=== PATIENT | female | born 2000 | race Caucasian/White ===

== ENCOUNTER 2023-01-30 13:32 | Emergency (ER) | payer MEDICAID, SELFPAY ==
[2023-01-30 13:39] VITALS: BP 115/83; PULSE 92; RESP 16; TEMP 36.7; O2SAT 97; BMI 28.3
[2023-01-30 14:56] LABS: Basophils % 0.4 %; Eosinophils # 0.3 10^3/uL (0.0-0.8); Eosinophils % 3.3 %; Hematocrit 39.1 % (37.0-47.0); Hemoglobin 11.6 g/dL (11.5-15.3); Lymphocytes # 2.1 10^3/uL (0.8-4.8); Mean Corpuscular HGB Conc 29.7 g/dL (30.0-36.0); Mean Corpuscular Hemoglobin 24.6 pg (28.0-34.0); Mean Platelet Volume 10.8 fL (7.4-10.4); Monocytes # 0.6 10^3/uL (0.2-0.9); Monocytes % 6.4 %; Neutrophils % 67.7 %; Nucleated Red Blood Cells % 0 %; Platelet Count 182 10^3/cmm (130-400); Red Blood Count 4.71 10^6/uL (4.1-5.3); Red Cell Distribution Width 16.7 % (12.1-15.1); White Blood Count 9.7 10^3/uL (4.0-10.0)
--- NOTE | 2023-01-30 15:15 | CTR_ITS ---
PROCEDURE INFORMATION: Exam: CT Abdomen And Pelvis With Contrast Exam date and time: 01/30/2023 3:53 PM Age: 22 years old Clinical indication: Abdominal pain; Localized; Right lower quadrant (rlq); Additional info: Rlq abd pain, TECHNIQUE: Imaging protocol: Computed tomography of the abdomen and pelvis with contrast. Radiation optimization: All CT scans at this facility use at least one of these dose optimization techniques: automated exposure control; mA and/or kV adjustment per patient size (includes targeted exams where dose is matched to clinical indication); or iterative reconstruction. Contrast material: OMNI 350; Contrast volume: 100 ml; Contrast route: INTRAVENOUS (IV); REPORTING DATA: Count of CT and Cardiac NM exams in prior 12 months: This patient has received 0 known CTs and 0 known cardiac nuclear medicine studies in the 12 months prior to the current study. COMPARISON: No relevant prior studies available. RADIATION DOSE METRICS: Total DLP (mGy-cm): 539.78 FINDINGS: Liver: Normal. No mass. Gallbladder and bile ducts: Normal. No calcified stones. No ductal dilation. Pancreas: Normal. No ductal dilation. Spleen: Normal. No splenomegaly. Adrenal glands: Normal. No mass. Kidneys and ureters: Normal. No hydronephrosis. Stomach and bowel: Colonic wall thickening with surrounding edema in the hepatic flexure and proximal transverse colon, suggestive of a colitis. Constipation. Appendix: No evidence of appendicitis. Intraperitoneal space: Unremarkable. No free air. No significant fluid collection. Vasculature: Unremarkable. No abdominal aortic aneurysm. Lymph nodes: Scattered prominent subcentimeter nonspecific mesenteric lymph nodes. Urinary bladder: Unremarkable as visualized. Reproductive: Unremarkable as visualized. Bones/joints: Unremarkable. No acute fracture. Soft tissues: Unremarkable. Other findings: Small amount nonspecific fluid in the pelvis. CT/CT abdomen pelvis w con* [id number] IMPRESSION: 1. Colonic wall thickening with surrounding edema in the hepatic flexure and proximal transverse colon, suggestive of a colitis. 2. Scattered prominent subcentimeter nonspecific mesenteric lymph nodes. 3. Constipation. 4. Small amount nonspecific fluid in the pelvis.
--- NOTE | 2023-01-30 15:17 | ED_ITS ---
HPI - Abdominal Pain General: Chief Complaint: Abdominal Pain Stated Complaint: RT Hip pain Time Seen by Provider: 01/30/23 14:39 History of Present Illness: Patient presents to the ER with complaint of right lower quadrant pain x1 day. Patient still has her appendix. Patient says she is nauseated. Patient is having normal bowel movements and this does not change the pain. Pushing on the abdomen does make the pain worse. Patient is approximately 7 weeks . Patient has not tried anything prior to arrival. Review of Systems General: Reports: 10 or more systems reviewed and unremarkable except in HPI and below Physical Exam Const: COMMON NORMALS: no acute distress, average body habitus, patient oriented x3, no limitations, healthy appearing, alert and well nourished HENMT: COMMON NORMALS: normocephalic, atraumatic, hearing grossly normal bilaterally, external ears normal, Normal external nose present and moist oral mucous membranes HEAD & SCALP: normocephalic and atraumatic NOSE: Normal external nose present EXTERNAL EAR: Yes external ears normal Eye: COMMON NORMALS: Equal, round and reactive pupils present, EOMs intact bilaterally, conjunctivae normal and no scleral icterus CONJUNCTIVA: Yes conjunctivae normal PUPIL: Yes Equal, round and reactive pupils present Neck/C-Spine: COMMON NORMALS: full ROM, no lymphadenopathy, supple, no meningeal signs, no JVD and Thyroid normal THYROID: Thyroid normal Lymph: LYMPHATIC: no lymphadenopathy noted Chest: COMMONS NORMALS: normal inspection of the chest and normal palpation of entire chest wall Resp: COMMON NORMALS: normal respiratory effort, No retractions, No use of accessory muscles and clear to auscultation bilaterally AUSCULTATION: clear to auscultation bilaterally Cardio: COMMON NORMALS: no JVD, regular rate, regular rhythm, S1 normal heart sound present, S2 normal heart sound present, No gallops present (Cardio), No clicks present (Cardio), No murmurs present (Cardio) and No rub (Cardio) RATE: regular rate RHYTHM: regular rhythm HEART SOUNDS: S1 normal heart sound present and S2 normal heart sound present GI: COMMON NORMALS: Normal to inspection, nondistended, normoactive bowel sounds present, Soft to palpation, No hepatosplenomegaly present and no masses; negative for non-tender (Tender to palpation over right lower quadrant with positive rebound.) PALPATION: Yes Soft to palpation and Yes No hepatosplenomegaly present : COMMON NORMALS: Yes no CVA tenderness BLADDER/KIDNEY EXAM: Yes no CVA tenderness Back/Pelvis: COMMON NORMALS: no CVA tenderness Neuro: COMMON NORMALS: patient oriented x3 SENSORIUM/ORIENTATION: Yes alert MENINGEAL SIGNS: Yes no meningeal signs Course Vital Signs: Vital signs: Vital Signs Temperature 98.0 F 01/30/23 13:39 Pulse Rate 93 01/30/23 15:43 Respiratory Rate 18 01/30/23 15:43 Blood Pressure 137/97 01/30/23 15:43 Pulse Oximetry 98 01/30/23 15:43 Oxygen Delivery Me thod Room Air 01/30/23 15:43 MDM - Abdominal Pain Medical Decision Making Patient presents to the ER with complaints of right lower quadrant abdominal pain. Starting yesterday. Patient is 7 weeks . Patient is not having diarrhea. Was obtained as well as CT with contrast that showed colonic wall thickening with surrounding edema suggestive of colitis. Patient is currently breast-feeding and is hesitant to go on any antibiotics at this [facility]. Since we cannot say with certainty it is bacterial colitis patient desires just to go home and watch it for the next several days and will follow up with her PCP as needed. Patient be discharged home Differential Diagnosis Likely abdominal pain and acute appendicitis; Unlikely calculus of kidney, constipation, diverticulitis, endometriosis, gastroenteritis, pancreatitis or small bowel obstruction Medical Records I reviewed the patient's medical records. Lab Data I reviewed the patient's lab results. 01/30/23 14:47 01/30/23 14:47 Labs/Radiology: Radiology Impressions Abdomen/Pelvis CT 01/30/23 15:15 IMPRESSION: 1. Colonic wall thickening with surrounding edema in the hepatic flexure and proximal transverse colon, suggestive of a colitis. 2. Scattered prominent subcentimeter nonspecific mesenteric lymph nodes. 3. Constipation. 4. Small amount nonspecific fluid in the pelvis. Laboratory Results WBC 9.7 10^3/uL (4.0-10.0) 01/30/23 14:47 RBC 4.71 10^6/uL (4.1-5.3) 01/30/23 14:47 Hgb 11.6 g/dL (11.5-15.3) 01/30/23 14:47 Hct 39.1 % (37.0-47.0) 01/30/23 14:47 MCV 83.0 fl (81-99) 01/30/23 14:47 MCH 24.6 pg (28.0-34.0) L 01/30/23 14:47 MCHC 29.7 g/dL (30.0-36.0) L 01/30/23 14:47 RDW 16.7 % (12.1-15.1) H 01/30/23 14:47 Plt Count 182 10^3/cmm (130-400) 01/30/23 14:47 MPV 10.8 fL (7.4-10.4) H 01/30/23 14:47 Neut % (Auto) 67.7 % 01/30/23 14:47 Lymph % (Auto) 22.0 % 01/30/23 14:47 Bladen % (Auto) 6.4 % 01/30/23 14:47 Eos % (Auto) 3.3 % 01/30/23 14:47 Baso % (Auto) 0.4 % 01/30/23 14:47 Neut # (Auto) 6.60 10^3/uL (1.8-7.7) 01/30/23 14:47 Lymph # (Auto) 2.1 10^3/uL (0.8-4.8) 01/30/23 14:47 Bladen # (Auto) 0.6 10^3/uL (0.2-0.9) 01/30/23 14:47 Eos # (Auto) 0.3 10^3/uL (0.0-0.8) 01/30/23 14:47 Baso # (Auto) 0.0 10^3/uL (0.0-0.1) 01/30/23 14:47 Nucleated RBC % (auto) 0 % 01/30/23 14:47 Nucleated RBCs # 0.0 /100WBC 01/30/23 14:47 Sodium 136 mmol/L (136-145) 01/30/23 14:47 Potassium 3.8 mmol/L (3.5-5.1) 01/30/23 14:47 Chloride 102 mmol/L (98-107) 01/30/23 14:47 Carbon Dioxide 21 mmol/L (22-29) L 01/30/23 14:47 Anion Gap 16.8 (5-19) 01/30/23 14:47 BUN 11 mg/dL (6-20) 01/30/23 14:47 Creatinine 0.7 mg/dL (0.5-0.9) 01/30/23 14:47 GFR Calculation 105.6 mL/min (90-130) 01/30/23 14:47 Glucose 84 mg/dL (65-115) 01/30/23 14:47 Calculated Osmolality 281 mOsm/kg (285-295) L 01/30/23 14:47 Calcium 8.8 mg/dL (8.5-10.5) 01/30/23 14:47 Total Bilirubin 0.5 mg/dL (0.15-1.2) 01/30/23 14:47 AST 51 U/L (0-32) H 01/30/23 14:47 ALT 96 U/L (0-33) H 01/30/23 14:47 Alkaline Phosphatase 120 U/L (35-105) H 01/30/23 14:47 Total Protein 7.3 g/dL (6.6-8.7) 01/30/23 14:47 Albumin 4.3 g/dL (3.5-5.2) 01/30/23 14:47 Globulin 3.0 g/dL (1.3-4.6) 01/30/23 14:47 Lipase 16 U/L (13-60) 01/30/23 14:47 HCG, Qual Negative (Negative) 01/30/23 15:10 Urine Color Yellow (Yellow) 01/30/23 15:10 Urine Appearance Hazy (CLEAR) A 01/30/23 15:10 Urine pH 5 (5-7) 01/30/23 15:10 Ur Specific Lander 1.015 (1.005-1.030) 01/30/23 15:10 Urine Protein Neg (Negative) 01/30/23 15:10 Urine Glucose (UA) Norm (Normal) 01/30/23 15:10 Urine Ketones 1+ (Negative) H 01/30/23 15:10 Urine Blood Neg (Negative) 01/30/23 15:10 Urine Nitrate Negative (Negative) 01/30/23 15:10 Urine Bilirubin Neg (Negative) 01/30/23 15:10 Urine Urobilinogen Norm mg/dL (Negative) 01/30/23 15:10 Ur Leukocyte Esterase 1+ (Negative) H 01/30/23 15:10 Urine RBC 0-4 /hpf (0-2) H 01/30/23 15:10 Urine WBC 5-10 /hpf (0-5) H 01/30/23 15:10 Ur Squamous Epith Cells 25-40 /hpf (0-5) H 01/30/23 15:10 Amorphous Sediment Not Reportable 01/30/23 15:10 Urine Bacteria None /hpf (NONE) 01/30/23 15:10 Urine Mucus 3+ /hpf 01/30/23 15:10 Discharge Plan Discharge Patient Disposition: Home Clinical Impression: Colitis, Abdominal pain, right lower quadrant Condition: Stable Prescriptions: No Action 28 mg iron- 800 mcg Tablet 1 tab PO DAILY Probiotic 10 billion cell Capsule 10,000 mmu cells PO DAILY Discharge Orders: Discharge ED (Routine); Ordered 01/30/23 Ordered By: Conor Haro Referrals: Eduardo Parker MD [Primary Care Provider] - 1 week Patient Instructions: Abdominal Pain (ED), Colitis (ED) Activity Restrictions/Additional Instructions: Please follow-up with your primary care practitioner in approximately 7 days as needed. Please return to the ER if your symptoms continue or worsen. Coding Level of Care Code ED Test Director for Francesca Valverde
[2023-01-30 15:20] LABS: HCG Qualitative Urine. Negative (Negative)
[2023-01-30 15:27] LABS: Urine Appearance Hazy (CLEAR); Urine Color Yellow (Yellow); pH Urine 5 (5-7)
[2023-01-30 15:28] LABS: Add Urine Microscopic? YES; Bilirubin Urine Neg (Negative); Blood Urine Neg (Negative); Glucose Urine UA Norm (Normal); Ketones Urine 1+ (Negative); Leukocyte Esterase Urine 1+ (Negative); Nitrate Urine Negative (Negative); Protein Urine Neg (Negative); Specific Gravity, Urine 1.015 (1.005-1.030); Urobilinogen Urine Norm (Negative)
[2023-01-30 15:29] LABS: Mucus Urine 3+ /hpf; RBC Urine 0-4 /hpf (0-2); Squamous Epithelial Cell Urine 25-40 /hpf (0-5)
[2023-01-30 15:30] LABS: Add Urine Culture? No
[2023-01-30 15:39] LABS: Alanine Aminotransferase 96 U/L (0-33); Albumin Level 4.3 g/dL (3.5-5.2); Alkaline Phosphatase 120 U/L (35-105); Anion Gap 16.8 (5-19); Aspartate Amino Transferase 51 U/L (0-32); Blood Urea Nitrogen 11 mg/dL (6-20); Calcium 8.8 mg/dL (8.5-10.5); Carbon Dioxide 21 mmol/L (22-29); Chloride 102 mmol/L (98-107); Creatinine Clr Calc Pharmacy 121.3599; Glomerular Filtration Rate 105.6 mL/min (90-130); Glucose 84 mg/dL (65-115); Lipase 16 U/L (13-60); Osmolality Calculated 281 mOsm/kg (285-295); Potassium 3.8 mmol/L (3.5-5.1); Sodium 136 mmol/L (136-145); Total Bilirubin 0.5 mg/dL (0.15-1.2); Total Protein 7.3 g/dL (6.6-8.7)
[2023-01-30 15:43] VITALS: BP 137/97; PULSE 93; RESP 18; O2SAT 98
[2023-01-30] MEDS: iohexol 350 mg/mL 500 mL Btl (per mL) IV (16:01)
[2023-01-30 18:02] VITALS: BP 99/67; PULSE 86; O2SAT 99
== END 2023-01-30 18:04 | disposition home or self-care (01) ==
PROVIDERS: Emergency Provider Emergency Medicine; PCP Family Medicine
DX: K52.9 Noninfective gastroenteritis and colitis, unspecified (principal)
CPT/HCPCS: 74177; 80053; 81001; 81025; 83690; 85025; 99285; Q9967